=== PATIENT | female | born 1970 | race Two or more races ===

== ENCOUNTER 2018-01-04 08:41 | Outpatient (CLI) | payer OTHER | END 2018-01-04 08:52 | disposition home or self-care (01) | LOC: SONOGRAMA 08:41 | DX: E04.2 Nontoxic multinodular goiter (principal) ==

== ENCOUNTER 2023-04-07 22:25 | Emergency (ER) | payer OTHER ==
[~2023-04-07] VITALS: Ht 165.1 cm; Wt 122.0 kg
[2023-04-08] MEDS ORDERED: CEPHALEXIN500 MG PO (06:57)
[2023-04-08] MEDS ORDERED: PEPCID40 MG PO (06:58)
[2023-04-08] MEDS ORDERED: ONDANSETRON ODT4 MG PO (06:58)
== END 2023-04-08 07:29 ==
LOC: ER 22:25
DX: N39.0 Urinary tract infection, site not specified (principal); R30.0 Dysuria; Z88.2 Allergy status to sulfonamides; Z20.822 Contact with and (suspected) exposure to COVID-19